=== PATIENT | female | born 1945 | race African-American/Black ===

== ENCOUNTER 2021-12-21 16:33 | Inpatient (IN) | payer MEDICARE, OTHER ==
[~2021-12-21] VITALS: Ht 170.2 cm; Wt 50.1 kg
[~2021-12-21 16:33] MED LIST: LEVO13CA2
[2021-12-21] MEDS ORDERED: SODIUM CHLORIDE 0.9% 1,000 ML IV ONE (16:45)
[2021-12-21 17:12] LABS: Mean Corpuscular Hemoglobin 30.3 pg (28.0-32.0); Red Cell Distribution Width 15.9 % (11.8-14.3)
[2021-12-21 17:21] LABS: Hematocrit 38.9 % (36.0-46.0); Mean Corpuscular Hgb Conc. 33.5 g/dL (32.0-36.0); Mean Corpuscular Volume 90.3 fL (80.0-100.0); White Blood Cell 4.2 10^3/uL (4.4-10.8)
[2021-12-21 17:24] LABS: Band Neutrophils % (manual) 0; Basophils % (manual) 0 (0.0-2.0); Blast Cells 0; Metamyelocytes % 0; Myelocytes % 0; Promyelocytes % 0; Reactive Lymphocytes 0
[2021-12-21 17:30] LABS: Albumin 4.2 g/dL (3.4-5.0); Anion Gap 8 (5-15); Blood Alcohol < 3.0 mg/dL (0-5); Blood Urea Nitrogen 15 mg/dL (7-18); Calcium 10.3 mg/dL (8.5-10.1); Carbon Dioxide 27 mmol/L (21-32); Chloride 104 mmol/L (98-107); Glucose 79 mg/dL (74-106); Potassium 3.5 mmol/L (3.5-5.1); Sodium 139 mmol/L (136-145)
[2021-12-21 17:34] LABS: Alanine Aminotransferase 12 U/L (13-56); Alkaline Phosphatase 81 U/L (45-117); Aspartate Aminotransferase 17 U/L (15-37); BUN/Creatinine Ratio 23.8; Bilirubin, Total 0.5 mg/dL (0.2-1.0); GFR African American 118 mL/min; GFR Non-African American 98 mL/min; Total Protein 8.2 g/dL (6.4-8.2)
[2021-12-21 18:54] LABS: Eosinophils % (manual) 1 (0-7); Lymphocytes % (manual) 44 (10.0-50.0); Monocytes % (manual) 7 (0-12)
[2021-12-22 06:17] LABS: Urine Bacteria FEW /hpf (None Seen); Urine Blood Negative /uL (Negative); Urine WBC 2 /hpf (0 - 5)
[2021-12-22] MEDS ORDERED: cefTRIAXone 1GM/50ML D5W 50 ML IV ONE (11:45)
[2021-12-22] MEDS ORDERED: ONDANSETRON HCL 4 MG/2 ML VIAL IV PRN (12:30)
[2021-12-22] MEDS ORDERED: NITROGLYCERIN 0.4 MG SL TAB SL PRN (12:30)
[2021-12-22] MEDS: SODIUM CHLORIDE 0.9% 1,000 ML IV SCH (12:30)
[2021-12-22] MEDS ORDERED: MORPHINE SULFATE INJECTION 2 MG/ML SYRG IV PRN ×2 (12:30)
[2021-12-22] MEDS ORDERED: DOCUSATE SOD 100 MG CAP PO PRN (12:30)
[2021-12-22] MEDS ORDERED: FAMOTIDINE (10MG/ML) 2ML VL IV ONE (12:45)
[2021-12-22 14:15] LABS: Folate (Folic Acid) 7.8 ng/mL (5.38-24)
[2021-12-22 14:22] LABS: INR 1.05 (0.9-1.15); Partial Thromboplastin Time 24.7 sec (23.6-33.0)
[2021-12-22] MEDS ORDERED: LEVOTHYROXINE SODIUM 50 MCG TAB PO ONE (16:15)
[2021-12-22] MEDS ORDERED: LORazepam 0.5 MG TAB PO PRN (16:15)
[2021-12-22] MEDS ORDERED: LEVO25CA3 PO (16:22)
[2021-12-22] MEDS ORDERED: AMLO-489 PO (16:22)
[2021-12-22 17:03] VITALS: BP 148/73
[2021-12-22 20:20] VITALS: BP 147/66
[2021-12-23] VITALS (9 sets, daily range): BP systolic 106–158; BP diastolic 45–68
[2021-12-23] MEDS: SODIUM CHLORIDE 0.9% 1,000 ML IV SCH ×2 (06:00→08:00)
[2021-12-23 06:59] LABS: Basophils # (auto) 0 10 ^3/uL (0-0.2); Basophils % (auto) 0.4 % (0.0-2.0); Eosinophils # (auto) 0.1 10 ^3/uL (0-0.8); Eosinophils % (auto) 2.1 % (0.0-7.0); Hemoglobin 11.1 g/dL (12.2-16.2); Lymphocytes # (auto) 1.5 10 ^3/uL (0.4-5.4); Lymphocytes % (auto) 36.4 % (10.0-50.0); Mean Corpuscular Hgb Conc. 33.7 g/dL (32.0-36.0); Mean Corpuscular Volume 89.1 fL (80.0-100.0); Monocytes # (auto) 0.5 10 ^3/uL (0-1.3); Monocytes % (auto) 12.5 % (0.0-12.0); Neutrophils % (auto) 48.6 % (37.0-80.0); Red Blood Cells 3.71 10^6/uL (4.0-5.20); Red Cell Distribution Width 15.9 % (11.8-14.3); White Blood Cell 4.1 10^3/uL (4.4-10.8)
[2021-12-23] MEDS: LEVOTHYROXINE SODIUM 50 MCG TAB PO SCH (07:00)
[2021-12-23 07:15] LABS: Albumin 2.9 g/dL (3.4-5.0); BUN/Creatinine Ratio 33.3; Calcium 9.4 mg/dL (8.5-10.1); Potassium 4.4 mmol/L (3.5-5.1)
[2021-12-23 07:19] LABS: Bilirubin, Total 0.2 mg/dL (0.2-1.0)
[2021-12-23] MEDS: cefTRIAXone 1GM/50ML D5W 50 ML IV SCH (09:00)
[2021-12-23] MEDS: FAMOTIDINE (10MG/ML) 2ML VL IV SCH (10:00)
[2021-12-23] MEDS: ENOXAPARIN SOD 40 MG/0.4 ML SYRINGE SC SCH (10:00)
[2021-12-23] MEDS ORDERED: levoFLOXacin 250 MG TAB PO ONE (16:00)
[2021-12-24 05:19] VITALS: BP 123/52
[2021-12-24] MEDS: LEVOTHYROXINE SODIUM 50 MCG TAB PO SCH (06:33)
[2021-12-24] MEDS: cefTRIAXone 1GM/50ML D5W 50 ML IV SCH (08:19)
[2021-12-24] MEDS: FAMOTIDINE (10MG/ML) 2ML VL IV SCH (08:20)
[2021-12-24 08:25] VITALS: BP 132/65
[2021-12-24] MEDS: ENOXAPARIN SOD 40 MG/0.4 ML SYRINGE SC SCH (10:00)
[2021-12-24 13:08] VITALS: BP 129/63
[2021-12-24 16:42] VITALS: BP 144/68
== END 2021-12-24 19:50 | disposition home health service (06) | DRG 689 ==
LOC: EDBD 16:33 → ER 16:33 → OVERFLOW 12-22 12:27 → WEST WING 12-22 14:43
PROVIDERS: ADMIT Hospitalist; ATTEND Internal Medicine
DX: N39.0 Urinary tract infection, site not specified (principal); G93.41 Metabolic encephalopathy; E78.5 Hyperlipidemia, unspecified; I10 Essential (primary) hypertension; L85.3 Xerosis cutis; M19.90 Unspecified osteoarthritis, unspecified site; R62.7 Adult failure to thrive; Z20.822 Contact with and (suspected) exposure to COVID-19; Z60.2 Problems related to living alone; F03.90 Unspecified dementia, unspecified severity, without behavioral disturbance, psychotic disturbance, mood disturbance, and anxiety; E03.9 Hypothyroidism, unspecified; Z82.49 Family history of ischemic heart disease and other diseases of the circulatory system
CPT/HCPCS: 36415; 70450; 71045; 80053; 80320; 81001; 82607; 82746; 83880; 84443; 84484; 85007; 85025; 85027; 85379; 85610; 85730; 87040; 87086; 87426; 96365; 96375; G0378; J0696; J3490